=== PATIENT | male | born 1990 | race Caucasian/White ===

== ENCOUNTER → 2018-04-25 09:41 | Outpatient (CLI) | payer OTHER, SELFPAY ==
[2015-10-26 21:21] VITALS: BMI 32.3
[2018-04-25 12:12] LABS: Erythrocyte Sedimentation Rate 1 mm/hr (0-15)
[2018-04-25 12:16] LABS: Absolute Lymphocyte Count 2.18 X10^3/ul (0.83-4.51); Absolute Neutrophil Count 3.5 X10^3/uL (2.0-7.7); Basophil# 0.03 X10^3/uL; Basophil% 0.5 % (0-1); Eosinophils% 1.6 % (0-5); Hematocrit 43.4 % (40-54); Hemoglobin 14.5 g/dl (13.0-16.5); Lymphocyte # 2.18 X10^3/ul (4.0); Lymphocyte % 35.5 % (19-41); Mean Corp Hgb Conc 33.4 g/gl (32-36); Mean Corpuscular Hgb 28.2 pg (27.0-32.0); Mean Corpuscular Volume 84.3 fL (80-94); Mean Platelet Vol. 11.2 fl (6.2-12.0); Monocyte# 0.32 X10^3/uL; Monocyte% 5.2 % (0-10); Neutrophil # 3.47 X10^3/uL (2.7-7.7); Neutrophil % 56.5 % (47-70); POSITIVE COUNT NO; POSITIVE DIFFERENTIAL NO; POSITIVE MORPHOLOGY NO; Platelet Count 245 K/mm3 (150-450); RBC Distribution Width CV 12.9 % (11.6-14.6); RBC Distribution Width SD 39.6 fl (35.1-43.9); Red Blood Count 5.15 M/mm3 (4.6-6.2); White Blood Count 6.1 K/mm3 (4.4-11.0)
[2018-04-25 12:29] LABS: Vitamin D,25 Hydroxy 19.8 ng/mL (29.95-100.01)
[2018-04-25 12:46] LABS: ALB/GLOB Ratio 1.1 RATIO (0.9-2.4); AST(SGOT) 18 U/L (15-37); Alanine Aminotransfer ALT/SGPT 35 U/L (16-61); Albumin, Serum 3.9 g/dL (3.2-5.0); Alkaline Phosphatase 61 U/L (45-117); Anion Gap 10 (5-15); BUN 18 mg/dL (7-18); BUN/Creat Ratio 16.1 RATIO (10-20); Calcium,Total 8.8 mg/dL (8.5-10.1); Chloride 105 mmol/L (98-107); Cholesterol 230 mg/dL (200); Creatinine, Serum 1.12 mg/dL (0.70-1.30); EST Glomerular Filtration Rate 83 mL/min (>60); Est Glom Filt Rate - Afr Amer 101 mL/min (>60); Globulin 3.6 g/dL (2.2-4.2); Glucose 84 mg/dL (74-106); High Density Lipoprotein 33 mg/dL; Protein, Total 7.5 g/dL (6.4-8.2); Sodium Level 143 mmol/L (136-145); Thyroid Stim Hormone (TSH) 2.22 uIU/mL (0.358-3.74); Triglycerides 223 mg/dL; Very Low Density Lipoprotein 45 mg/dL (5-40)
--- OUTSIDE RECORDS SUMMARY | 2018-07-27 16:51 | XMS RPT_ITS ---
:1990 Author Organization [facility] Care Team Providers Name Role Phone Artemio Chavarria Attending Unavailable [facility] Unavailable PROBLEMS PROBLEMS DATE TYPE CONDITION / ATTENDING STATUS SOURCE CODE 04/25/2018 Unknown V77.91 - [place], Active [place] [facility] V77.91(ICD-9) 04/25/2018 Unknown Z13.220 - Deon Active [place] Encounter for [facility] screening for Hospital lipoid Repository disorders / Z13.220(ICD-10) 04/25/2018 Unknown 780.79 - Other [place], Active [place] malaise and [facility] fatigue / Hospital 780.79(ICD-9) Repository 04/25/2018 Unknown R53.83 - Other [place], Active [place] fatigue / [facility] R53.83(ICD-10) Hospital Repository PROCEDURES PROCEDURES No Procedure Records FoundRESULTS RESULTS ERYTHROCYTE SED RATE Collected: 04/25/2018 Status: F Source: [place] 9:46 AM [facility] REPOSITORY TYPE CODE TESTS RESULT OUT OF RANGE REFERENCE UNITS LAB L102.0000 0-15 mm/hr Normal SED RATE 1 Performed By: #### L101.9900, L100.0100, L506.1000, L500.4050, L500.4100, L501.9520 #### [facility] [address] [place], [address] CBC W/DIFF, AUTOMATED Collected: 04/25/2018 Status: F Source: [place] 9:46 AM [facility] REPOSITORY TYPE CODE TESTS RESULT OUT OF RANGE REFERENCE UNITS LAB L100.1000 4.4-11.0 K/mm3 Normal WBC 6.1 LAB L100.1200 4.6-6.2 M/mm3 Normal RBC 5.15 LAB L100.1300 13.0-16.5 g/dl Normal HGB 14.5 LAB L100.1400 40-54 % Normal HCT 43.4 LAB L100.1500 80-94 fL Normal MCV 84.3 LAB L100.1600 27.0-32.0 pg Normal MCH 28.2 LAB L100.1700 32-36 g/gl Normal MCHC 33.4 LAB L100.1810 11.6-14.6 % Normal RDW CV 12.9 LAB L100.1820 35.1-43.9 fl Normal RDW SD 39.6 LAB L100.1900 150-450 K/mm3 Normal PLT 245 LAB L100.2000 6.2-12.0 fl Normal MPV 11.2 LAB L100.2100 47-70 % Normal NEUT% 56.5 LAB L100.2200 19-41 % Normal LY% 35.5 LAB L100.2300 0-10 % Normal MONO% 5.2 LAB L100.2400 0-5 % Normal EO% 1.6 LAB L100.2500 0-1 % Normal BASO% 0.5 LAB L100.2550 0.0-0.9 % Normal IM GRAN % 0.700 Result Comment: IG% - Immature Granulocytes (promyelocytes, myelocytes and metamyelocytes) > 1% indicates that a LEFT SHIFT is Present. LAB L100.2620 2.0-7.7 X10 3/uL Normal Absolute Neut 3.5 LAB L100.2720 0.83-4.51 X10 3/ul Normal Absolute Lymph 2.18 Performed By: #### L101.9900, L100.0100, L506.1000, L500.4050, L500.4100, L501.9520 #### [facility] [address] [place], [address] VITAMIN D,25 HYDROXY Collected: 04/25/2018 Status: F Source: [place] 9:46 AM [facility] REPOSITORY TYPE CODE TESTS RESULT OUT OF REFERENCE UNITS RANGE LAB L506.1000 29.95-100.01 ng/mL Low Vitamin D 19.8 25-OH Result Comment: Vitamin D 25(OH) Status Range Deficiency <20 ng/mL (50nmol/L) Insuffciency 20 - 30 ng/mL (50 - 75 nmol/L) Sufficiency 30 - 100 ng/mL (75 - 250 nmol/L) Toxicity >100 ng/mL (>250 nmol/L) Performed By: #### L101.9900, L100.0100, L506.1000, L500.4050, L500.4100, L501.9520 #### [facility] [address] [place], [address] COMPREHENSIVE METABOLIC Collected: 04/25/2018 Status: F Source: [facility] 9:46 AM [facility] REPOSITORY TYPE CODE TESTS RESULT OUT OF RANGE REFERENCE UNITS LAB L501.0100 74-106 mg/dL Normal GLU 84 Result Comment: Please note revised GLUCOSE reference range effective 2017. LAB L501.1000 7-18 mg/dL Normal BUN 18 LAB L501.1100 0.70-1.30 mg/dL Normal CREAT,SERUM 1.12 Result Comment: The validity of the calculated GFR AND GFRAA in patients over 70 years has not been determined. Clinical correlation is essential. LAB L501.1110 >60 mL/min Normal EST GFR 83 Result Comment: Non- GFR Calc LAB L501.1115 >60 mL/min Normal EST GFR - AA 101 Result Comment: GFR Calc LAB L501.1300 10-20 RATIO Normal BUN/CRE 16.1 LAB L501.1500 6.4-8.2 g/dL T Normal PROT 7.5 LAB L501.1800 3.2-5.0 g/dL Normal ALB 3.9 LAB L501.1950 2.2-4.2 g/dL Normal GLOB 3.6 LAB L501.2000 0.9-2.4 RATIO Normal A/G 1.1 LAB L501.2200 8.5-10.1 mg/dL CA Normal 8.8 LAB L501.4100 15-37 U/L Normal AST 18 LAB L501.4305 45-117 U/L Normal ALK P 61 LAB L501.4405 16-61 U/L Normal ALT 35 LAB L501.4600 0.20-1.00 mg/dL T Normal BILI 0.50 LAB L501.5300 136-145 mmol/L NA Normal 143 LAB L501.5600 3.5-5.1 mmol/L K Normal 4.0 LAB L501.5900 98-107 mmol/L CL Normal 105 LAB L501.6100 21.0-32.0 mmol/L Normal CO2 28.0 LAB L501.6200 5-15 Normal GAP 10 Performed By: #### L101.9900, L100.0100, L506.1000, L500.4050, L500.4100, L501.9520 #### [facility] [address] [facility] [place], [place], [id number] LIPID PROFILE Collected: 04/25/2018 Status: F Source: [place] 9:46 AM [facility] REPOSITORY TYPE CODE TESTS RESULT OUT OF RANGE REFERENCE UNITS LAB L501.4900 200 mg/dL High CHOL 230 Result Comment: <200 mg/dL Desirable 200-240 mg/dL Borderline >240 mg/dL High Risk LAB L501.5000 mg/dL High TRIG 223 Result Comment: The drugs N-Acetylcysteine and Metamizole may falsely depress this assay. Serum Triglycerides Reference Interval Normal <150 mg/dL Borderline high 150 - 199 mg/dL High 200 - 499 mg/dL Very High > or = 500 mg/dL LAB L501.6400 mg/dL Low HDL 33 Result Comment: The drugs N-Acetylcysteine and Metamizole may falsely depress this assay. Reference Range HDL <40 mg/dL Low HDL Cholesterol HDL >or= 60 mg/dL High HDL Cholesterol LAB L501.6500 0-130 mg/dL High LDL 152 LAB L501.6600 5-40 mg/dL High VLDL 45 Performed By: #### L101.9900, L100.0100, L506.1000, L500.4050, L500.4100, L501.9520 #### [facility] [address] [facility] [place], [place], [id number] THYROID STIM HORMONE Collected: 04/25/2018 Status: F Source: [place] (TSH) 9:46 AM [facility] REPOSITORY TYPE CODE TESTS RESULT OUT OF RANGE REFERENCE UNITS LAB L501.9520 0.358-3.74 uIU/mL Normal TSH 2.22 Performed By: #### L101.9900, L100.0100, L506.1000, L500.4050, L500.4100, L501.9520 #### [facility] [address] [place], [address] ALLERGIES ALLERGIES DATE TYPE / CODE NAME / CODE REACTION SEVERITY SOURCE 10/26/2015 Drug codeine Hives Unknown [facility] Allergy/4160 phosphate/F000 Hospital 17140(SNOMED 010889(RXNORM) Repository CT) 10/26/2015 Drug acetaminophen/ Hives Unknown [facility] Allergy/4160 [id number](RXN Hospital 09440(SNOMED ORM) Repository CT) ENCOUNTERS ENCOUNTERS ADMIT/DISCHARGE ACCOUNT ADMITTING ENCOUNTER LOCATION SOURCE NUMBER CLASS 04/25/2018 [id number] Ambulatory [address] ing:MFPLAB Repository PAYERS PAYERS ENCOUNTER GUARANTOR PAYER SUBSCRIBER SOURCE 04/25/2018 Sathish Godfrey Primary [place] [address] TR Insurance:[address] [facility] [address]Tuf: ([phone]) [id number] Repository [phone] () Date:[id number] [address]LJ: 04/25/2018 Secondary [place]:SELF [facility]Y [facility] Number: Effective Repository Date:2018-04-25
== END ==
PROVIDERS: Family Provider Family Medicine; PCP Family Medicine; Visit Provider Family Medicine
DX: R53.83 Other fatigue (principal); Z13.220 Encounter for screening for lipoid disorders
CPT/HCPCS: 36415; 80053; 80061; 82306; 84443; 85025; 85652

== ENCOUNTER 2024-12-06 23:47 | Emergency (ER) | payer OTHER, SELFPAY ==
[2024-12-06 23:48] VITALS: BP 163/95; PULSE 83; RESP 20; TEMP 36.2; O2SAT 98; BMI 35.4
--- OUTSIDE RECORDS SUMMARY | 2024-12-07 00:17 | XMS RPT_ITS | CCD ---
Author Organization [facility] Care Team Providers Care Edi Architect Name Role Phone Artemio Chavarria Unavailable Unavailable Artemio Chavarria Unavailable Unavailable TOBY FIGUEROA Attending Unavailable CAROLEE RIVERA (SPECIAL EDUCATION PARA PROFESSIONAL) Referring Unavailable Allergies Allergy Classification Reported Allergen(s) Allergy Type Date of Onset Reaction(s) Facility (1 source) Acetaminophen Drug Allergy 10-26-2015 [facility] Repository (1 source) Codeine Drug Allergy 10-26-2015 [facility] Repository (1 source) Codeine; Translations: [CODEINE] Drug Allergy 08-16-2007 [facility] Repository Problems Problem Classification Problem Date Documented Da te Episodic/Chronic Malaise and fatigue (2 sources) Other malaise and fatigue; Translations: [Other fatigue] Onset: 04-25-2018 Episodic Other screening for suspected conditions (not mental disorders or infectious disease) (2 sources) Screening for lipoid disorders; Translations: [Encounter for screening for lipoid disorders] Onset: 04-25-2018 Episodic Results Test Name Value Interpretation Reference Range Facil ity CBC W/Diff, Automatedon 04-08 Absolute Neut 3.5 X10 3/uL Normal 2.0-7.7 [facility] Comment on above: Performed By: #### L 101.9900, L100.0100, L506.1000, L500.4050, L500.4100, L501.9520 ####[facility] [address] [place], [address] Basophils/100 WBC Auto (Bld) 0.5 % Normal 0-1 [facility] Comment on above: Performed By: #### L 101.9900, L100.0100, L506.1000, L500.4050, L500.4100, L501.9520 ####[facility] [address] [place], [address] Eosinophils/100 WBC Auto (Bld) 1.6 % Normal 0-5 [facility] Comment on above: Performed By: #### L 101.9900, L100.0100, L506.1000, L500.4050, L500.4100, L501.9520 ####[facility] [address] [place], [address] Erythrocyte distribution width Auto Ratio (RBC) 12.9 % Normal 11.6-14.6 [facility] Comment on above: Performed By: #### L 101.9900, L100.0100, L506.1000, L500.4050, L500.4100, L501.9520 ####[facility] [address] [place], [address] Hematocrit Auto Volume Fraction (Bld) 43.4 % Normal 40-54 [facility] Comment on above: Performed By: #### L 101.9900, L100.0100, L506.1000, L500.4050, L500.4100, L501.9520 ####[facility] [address] [place], [address] Hemoglobin mass conc (Bld) 14.5 g/dL Normal 13.0-16.5 [facility] Comment on above: Performed By: #### L 101.9900, L100.0100, L506.1000, L500.4050, L500.4100, L501.9520 ####[facility] [address] [place], [address] IM GRAN % 0.700 % Normal 0.0-0.9 [facility] Comment on above: Result Comment: IG% - Immature Granulocytes (promyelocytes, myelocytes andmetamyelocytes) > 1% indicates that a LEFT SHIFT is Present. Performed By: #### L 101.9900, L100.0100, L506.1000, L500.4050, L500.4100, L501.9520 ####[facility] [address] [place], [address] Lymphocytes Auto #/vol (Bld) 2.18 X10 3/ul Normal 0.83-4.51 [facility] Comment on above: Performed By: #### L 101.9900, L100.0100, L506.1000, L500.4050, L500.4100, L501.9520 ####[facility] [address] [place], [address] Lymphocytes/100 WBC Auto (Bld) 35.5 % Normal 19-41 [facility] Comment on above: Performed By: #### L 101.9900, L100.0100, L506.1000, L500.4050, L500.4100, L501.9520 ####[facility] [address] [place], [address] MCH Auto Entitic mass (RBC) 28.2 pg Normal 27.0-32.0 [facility] Comment on above: Performed By: #### L 101.9900, L100.0100, L506.1000, L500.4050, L500.4100, L501.9520 ####[facility] [address] [place], [address] MCHC Auto mass conc (RBC) 33.4 g/gl Normal 32-36 [facility] Comment on above: Performed By: #### L 101.9900, L100.0100, L506.1000, L500.4050, L500.4100, L501.9520 ####[facility] [address] [place], [address] MCV Auto Entitic volume (RBC) 84.3 fL Normal 80-94 [facility] Comment on above: Performed By: #### L 101.9900, L100.0100, L506.1000, L500.4050, L500.4100, L501.9520 ####[facility] [address] [place], [address] Monocytes/100 WBC Auto (Bld) 5.2 % Normal 0-10 [facility] Comment on above: Performed By: #### L 101.9900, L100.0100, L506.1000, L500.4050, L500.4100, L501.9520 ####[facility] [address] [place], [address] Neutrophils/100 WBC Auto (Bld) 56.5 % Normal 47-70 [facility] Comment on above: Performed By: #### L 101.9900, L100.0100, L506.1000, L500.4050, L500.4100, L501.9520 ####[facility] [address] [place], [address] Platelet mean volume Auto Entitic volume (Bld) 11.2 fL Normal 6.2-12.0 [facility] Comment on above: Performed By: #### L 101.9900, L100.0100, L506.1000, L500.4050, L500.4100, L501.9520 ####[facility] [address] [place], [address] Platelets Auto #/vol (Bld) 245 10*3/uL Normal 150-450 [facility] Comment on above: Performed By: #### L 101.9900, L100.0100, L506.1000, L500.4050, L500.4100, L501.9520 ####[facility] [address] [place], [address] RBC Auto #/vol (Bld) 5.15 M/mm3 Normal 4.6-6.2 [facility] Comment on above: Performed By: #### L 101.9900, L100.0100, L506.1000, L500.4050, L500.4100, L501.9520 ####[facility] [address] [place], [place], [id number] RDW SD 39.6 fl Normal 35.1-43.9 [facility] Comment on above: Performed By: #### L 101.9900, L100.0100, L506.1000, L500.4050, L500.4100, L501.9520 ####[facility] [address] [place], [address] WBC Auto #/vol (Bld) 6.1 10*3/uL Normal 4.4-11.0 [facility] Comment on above: Performed By: #### L 101.9900, L100.0100, L506.1000, L500.4050, L500.4100, L501.9520 ####[facility] [address] [place], [place], [id number] Comprehensive Metabolic Prof caon 04-25-2018 Albumin mass conc 3.9 g/dL Normal 3.2-5.0 [facility] Comment on above: Performed By: #### L 101.9900, L100.0100, L506.1000, L500.4050, L500.4100, L501.9520 ####[facility] [address] [place], [place], [address] Albumin/Globulin mass ratio 1.1 {ratio} Normal 0.9-2.4 [facility] Comment on above: Performed By: #### L 101.9900, L100.0100, L506.1000, L500.4050, L500.4100, L501.9520 ####[facility] [address] [place], [address] ALP enzyme act/vol 61 U/L Normal 45-117 [facility] Comment on above: Performed By: #### L 101.9900, L100.0100, L506.1000, L500.4050, L500.4100, L501.9520 ####[facility] [address] [place], [address] ALT enzyme act/vol 35 U/L Normal 16-61 [facility] Comment on above: Performed By: #### L 101.9900, L100.0100, L506.1000, L500.4050, L500.4100, L501.9520 ####[facility] [address] [place], [address] AST enzyme act/vol 18 U/L Normal 15-37 [facility] Comment on above: Performed By: #### L 101.9900, L100.0100, L506.1000, L500.4050, L500.4100, L501.9520 ####[facility] [address] [place], [address] Bilirubin mass conc 0.50 mg/dL Normal 0.20-1.00 [facility] Comment on above: Performed By: #### L 101.9900, L100.0100, L506.1000, L500.4050, L500.4100, L501.9520 ####[facility] [address] [place], [address] Calcium mass conc 8.8 mg/dL Normal 8.5-10.1 [facility] Comment on above: Performed By: #### L 101.9900, L100.0100, L506.1000, L500.4050, L500.4100, L501.9520 ####[facility] [address] [place], [address] Chloride molar conc 105 mmol/L Normal 98-107 [facility] Comment on above: Performed By: #### L 101.9900, L100.0100, L506.1000, L500.4050, L500.4100, L501.9520 ####[facility] [address] [place], [address] CO2 molar conc 28.0 mmol/L Normal 21.0-32.0 [facility] Comment on above: Performed By: #### L 101.9900, L100.0100, L506.1000, L500.4050, L500.4100, L501.9520 ####[facility] [address] [place], [address] Creatinine mass conc 1.12 mg/dL Normal 0.70-1.30 [facility] Comment on above: Result Comment: The validity of the calculated GFR AND GFRAA in patients over70 years has not been determined. Clinical correlation isessential. Performed By: #### L 101.9900, L100.0100, L506.1000, L500.4050, L500.4100, L501.9520 ####[facility] [address] [place], [address] EST GFR - AA 101 mL/min Normal >60 [facility] Comment on above: Result Comment: Afri can [place]egalese GFR Calc Performed By: #### L 101.9900, L100.0100, L506.1000, L500.4050, L500.4100, L501.9520 ####[facility] [address] [place], [address] GAP 10 Normal 5-15 [facility] Comment on above: Performed By: #### L 101.9900, L100.0100, L506.1000, L500.4050, L500.4100, L501.9520 ####[facility] [address] [place], [address] GFR/1.73 sq M predicted among non-blacks MDRD vol rate/area (S/P/Bld) 83 mL/min/{1.73_m2} Normal >60 [facility] Comment on above: Result Comment: Non- GFR Calc Performed By: #### L 101.9900, L100.0100, L506.1000, L500.4050, L500.4100, L501.9520 ####[facility] [address] [place], [address] Globulin Calculated mass conc (S) 3.6 g/dL Normal 2.2-4.2 [facility] Comment on above: Performed By: #### L 101.9900, L100.0100, L506.1000, L500.4050, L500.4100, L501.9520 ####[facility] [address] [place], [address] Glucose mass conc 84 mg/dL Normal 74-106 [facility] Comment on above: Result Comment: Elaine welsh note revised GLUCOSE reference range ajbgjxlpy22/02/2018. Performed By: #### L 101.9900, L100.0100, L506.1000, L500.4050, L500.4100, L501.9520 ####[facility] [address] [place], [address] Potassium molar conc 4.0 mmol/L Normal 3.5-5.1 [facility] Comment on above: Performed By: #### L 101.9900, L100.0100, L506.1000, L500.4050, L500.4100, L501.9520 ####[facility] [address] [place], [address] Protein mass conc 7.5 g/dL Normal 6.4-8.2 [facility] Comment on above: Performed By: #### L 101.9900, L100.0100, L506.1000, L500.4050, L500.4100, L501.9520 ####[facility] [address] [place], [address] Sodium molar conc 143 mmol/L Normal 136-145 [facility] Comment on above: Performed By: #### L 101.9900, L100.0100, L506.1000, L500.4050, L500.4100, L501.9520 ####[facility] [address] [place], [address] Urea nitrogen mass conc 18 mg/dL Normal 7-18 [facility] Comment on above: Performed By: #### L 101.9900, L100.0100, L506.1000, L500.4050, L500.4100, L501.9520 ####[facility] [address] [place], [address] Urea nitrogen mass conc (Bld) 16.1 RATIO Normal 10-20 [facility] Comment on above: Performed By: #### L 101.9900, L100.0100, L506.1000, L500.4050, L500.4100, L501.9520 ####[facility] [address] [place], [place], [id number](293) Erythrocyte Sed Rateon 04-25 SED RATE 1 mm/hr Normal 0-15 [facility] Comment on above: Performed By: #### L 101.9900, L100.0100, L506.1000, L500.4050, L500.4100, L501.9520 ####[facility] [address] [place], [address] Lipid Profileon 04-25-2018 Cholesterol in HDL mass conc 33 mg/dL Low [facility] Comment on above: Result Comment: The drugs N-Acetylcysteine and Metamizole may falselydepress this assay. Reference Range HDL <40 mg/dL Low HDL Cholesterol HDL >or= 60 mg/dL High HDL Cholesterol Performed By: #### L 101.9900, L100.0100, L506.1000, L500.4050, L500.4100, L501.9520 ####[facility] [address] [place], [address] Cholesterol in LDL mass conc 152 mg/dL High 0-130 [facility] Comment on above: Performed By: #### L 101.9900, L100.0100, L506.1000, L500.4050, L500.4100, L501.9520 ####[facility] [address] [place], [address] Cholesterol in VLDL mass conc 45 mg/dL High 5-40 [facility] Comment on above: Performed By: #### L 101.9900, L100.0100, L506.1000, L500.4050, L500.4100, L501.9520 ####[facility] [address] [place], [address] Cholesterol mass conc 230 mg/dL High 200 [facility] Comment on above: Result Comment: <200 mg/dL Desirable 200-240 mg/dL Borderline >240 mg/dL High Risk Performed By: #### L 101.9900, L100.0100, L506.1000, L500.4050, L500.4100, L501.9520 ####[facility] [address] [place], [address] Triglyceride mass conc 223 mg/dL High [facility] Comment on above: Result Comment: The drugs N-Acetylcysteine and Metamizole may falselydepress this assay.Serum Triglycerides Reference Interval Normal <150 mg/dL Borderline high 150 - 199 mg/dL High 200 - 499 mg/dL Very High > or = 500 mg/dL Performed By: #### L 101.9900, L100.0100, L506.1000, L500.4050, L500.4100, L501.9520 ####[facility] [address] [place], [address] Thyroid Stim Hormone (TSH)on 04-25-2018 Thyrotropin Qn 2.22 uIU/mL Normal 0.358-3.74 [facility] Comment on above: Performed By: #### L 101.9900, L100.0100, L506.1000, L500.4050, L500.4100, L501.9520 ####[facility] [address] [place], [address] Vitamin D,25 Hydroxyon 04-25 Vitamin D 25-OH 19.8 ng/mL Low 29.95-100.01 [facility] Comment on above: Result Comment: Inna min D 25(OH) Status Range Deficiency <20 ng/mL (50nmol/L) Insuffciency 20 - 30 ng/mL (50 - 75 nmol/L) Sufficiency 30 - 100 ng/mL (75 - 250 nmol/L) Toxicity >100 ng/mL (>250 nmol/L) Performed By: #### L 101.9900, L100.0100, L506.1000, L500.4050, L500.4100, L501.9520 ####[facility] [address] [place], [address] Encounters Encounter Date Encounter Type Care Provider Facility Start: 04-25-2018 Patient encounter procedure Artemio Chavarria Facility:[facility] Start: 10-08-2016 End: 10-08-2016 Patient encounter procedure TOBY FIGUEROA [facility] Payers Date Payer Category Payer Self-pay 2018 Unknown [id number] Unknown [id number] Summary Purpose Family History No Family History Records FoundNo Family History Records Found Advance Directives No Advanced Directives Records FoundNo Advanced Directives Records Found Additional Source Comments (unrecognized sect ion and content) No Status Records FoundNo Status Records Found INFORMATION SOURCE (unrecogn ized section and content) DATE CREATED AUTHOR 04/27/2018 [facility] DATE CREATED AUTHOR AUTHOR'S ORGANIZ ATADDIS 07/09/2018 [facility] FOR RECORDS PERTAINING TO PATIENTS WHO ARE OR HAVE BEEN ENROLLED IN A CHEMICAL DEPENDENCY/SUBSTANCEABUSE PROGRAM, SOME INFORMATION MAY BE OMITTED. This clinical summary was aggregated from multiple sources. Caution should be exercised in using it in the provision of clinical care. This summary normalizes information from multiple sources, and as a consequence, information in this document may materially change the coding, format and clinical context of patient data. In addition, data may be omitted in some cases. CLINICAL DECISIONS SHOULD BE BASED ON THE PRIMARY CLINICAL RECORDS. [facility]. provides no warranty or guarantee of the accuracy or completeness of information in this document.
--- NOTE | 2024-12-07 00:23 | CT_ITS ---
PROCEDURE: BRAIN/HEAD WITHOUT CONTRAST 12/07/2024 REASON FOR EXAM: HEAD INJURY TECHNIQUE: BRAIN/HEAD WITHOUT CONTRAST Coronal and Sagittal reconstruction series were provided. One or more dose reduction techniques were used (e.g., Automated exposure control, adjustment of the mA and/or kV according to patient size, use of iterative reconstruction technique. COMPARISON: No FINDINGS: No abnormal brain densities. No intracranial hemorrhage. No hydrocephalus or midline shift. No acute scalp or skull pathology. Left hemifacial injury. Unremarkable orbits. Clear sinuses. CT/Brain/Head without Contrast IMPRESSION: No acute intracranial findings Reading Location: [place] [address]
--- NOTE | 2024-12-07 00:23 | CT_ITS ---
PROCEDURE: SPINE CERVICAL WITHOUT CONTRAS 12/07/2024 REASON FOR EXAM: FALL TECHNIQUE: SPINE CERVICAL WITHOUT CONTRAS Coronal and Sagittal reconstruction series were provided. One or more dose reduction techniques were used (e.g., Automated exposure control, adjustment of the mA and/or kV according to patient size, use of iterative reconstruction technique. COMPARISON: No FINDINGS: Mild cervical spine degeneration. No acute fracture or dislocation. No soft tissue injury. CT/Spine Cervical without Contras IMPRESSION: No injury noted. Reading Location: [place] [address]
--- NOTE | 2024-12-07 00:23 | CT_ITS ---
PROCEDURE: SINUS/FACIAL BONE 12/07/2024 REASON FOR EXAM: INJURY TECHNIQUE: SINUS/FACIAL BONE Coronal and Sagittal reconstruction series were provided. One or more dose reduction techniques were used (e.g., Automated exposure control, adjustment of the mA and/or kV according to patient size, use of iterative reconstruction technique). RADIATION DOSE SUMMARY: CTDlvol: 100 mGy DLP: 2063 mGycm COMPARISON: No FINDINGS: No facial fracture or dislocation. Left hemifacial swelling/hemorrhage. Orbital soft tissues are unremarkable. CT/Sinus/Facial Bone IMPRESSION: Left hemifacial soft tissue injury. Reading Location: [place] [address]
--- NOTE | 2024-12-07 00:40 | RAD_ITS ---
PROCEDURE: RIBS UNI MIN 3V W/PA CHEST 12/07/2024 REASON FOR EXAM: PAIN TECHNIQUE: RIBS UNI MIN 3V W/PA CHEST COMPARISON: No FINDINGS: Normal heart size. Well inflated lungs. No contusion, pneumothorax, or pleural effusion. No acute rib fracture. RAD/Ribs Uni Min 3V w/PA Chest IMPRESSION: No acute injury noted. [facility]
[2024-12-07 00:47] VITALS: BP 151/99; PULSE 77; O2SAT 96
[2024-12-07 01:00] VITALS: BP 151/99; PULSE 77; O2SAT 96
--- NOTE | 2024-12-07 01:29 | EDS_ITS ---
HPI History of Present Illness Chief Complaint: Fall Informant: patient and spouse/S.O. Narrative Narrative: Patient is a 34-year-old male who reports no past medical history. He states roughly an hour ago he was working outside in his barn. He he states one of the support beams he was walking [employer] and he fell approximately 10 feet landing on his left side striking his head/face. He denies any loss of consciousness from the fall. He denies any history of bleeding disorder or blood thinner use. He states he was able to get back up and walk to the house following the fall. Since that time he denies any change in vision or headache or nausea or vomiting. However secondary to the nature of the fall and concern for underlying trauma he was brought in for evaluation. PFSH PFS Medical History no medical history no medical history Home Medications ?Medication ?Instructions ?Recorded ?Last Taken ?Type amoxicillin 875 mg-potassium 1 tab PO BID 7 days #14 t abs 12/07/24 Unknown Rx clavulanate 125 mg tablet Allergy/AdvReac Type Severity Reaction Status Date / Time acetaminophen (From Allergy Hives Verified 12/06/24 23:47 Tylenol-Codeine) codeine phosphate (From Allergy Hives Verified 12/06/24 23:47 Tylenol-Codeine) Surgical History (Updated 12/06/24 @ 23:50 by Libertad Ro) History of appendectomy Social History Smoking Status: Never smoker ROS ROS ED Constitutional Constitutional ED: Denies chills or fever(s) Eyes Eyes: Denies blurry vision, change in vision or diplopia ENT ENT ED: Denies sore throat Cardiovascular Cardiovascular: Denies chest pain Respiratory/Chest Respiratory/Chest: Denies cough or dyspnea Gastrointestinal Gastrointestinal: Denies abdominal pain, nausea or vomiting Musculoskeletal Musculoskeletal: Reports other Details: Positive left chest wall pain ; Denies back pain or neck pain Integumentary Reports Abrasions and other Details: Positive left cheek abrasion and facial swelling with lower lip laceration Neurologic Neurologic: Denies headache(s), paresthesias or weakness Hematologic/Lymphatic Hematologic/Lymphatic: Denies easy bleeding or easy bruising Allergic/Immunologic Allergic/Immunologic ED: Reports mouth swelling EXAM Physical Exam Const Vital Signs: 12/06/24 23:48 12/06/24 23:50 12/07/24 00:47 Temperature 97.2 F L Temperature Source Temporal Pulse Rate 83 77 Respiratory Rate 20 H Respiratory Effort Normal Respiratory Depth Normal Respiratory Pattern Normal Blood Pressure 163/95 H 151/99 H Blood Pressure Mean 117 116 Pulse Ox 98 96 Oxygen Delivery Method Room Air Room Air Room Air 12/07/24 01:00 12/07/24 01:38 Temperature 98.8 F Temperature Source Pulse Rate 77 85 Respiratory Rate 17 Respiratory Effort Respiratory Depth Respiratory Pattern Blood Pressure 151/99 H 159/99 H Blood Pressure Mean 116 119 Pulse Ox 96 99 Oxygen Delivery Method Room Air Positive well nourished and well developed General Appearance ED: well developed; Negative for pallor HEENT HEENT Narrative: Patient has a superficial abrasion across the anterior cheek on the left by the zygomatic arch. He has diffuse left-sided facial swelling There is a subcutaneous layer deep 1.5 cm jagged laceration to the internal aspect of the left sided portion of the lower lip without active bleeding or retained foreign body No septal hematoma noted No signs of depressed or basilar skull fracture Eyes PERRL and EOMs intact bilaterally Eyes Narrative: No hyphema Neck supple Neck Narrative: No bony deformity or step-off of the cervical spine no midline tenderness to palpation Patient can move his neck in all directions without pain Chest Wall Chest Narrative: There is mild soft tissue swelling and pain with palpation of the anterior lateral chest wall rib regions 4-6 without bony deformity or crepitance noted Resp normal respiratory effort and clear to auscultation bilaterally Cardio regular rate and regular rhythm GI normal to inspection, nondistended, normoactive bowel sounds, non-tender, non- distended and no masses GI Narrative: No voluntary guarding or rigidity or pulsatile mass No overlying ecchymosis present Auscultation: normoactive bowel sounds Palpation: soft Back/Spine Back/Spine Narrative: No bony deformity or step-off of the thoracic or lumbar spine No midline pain with palpation Extremity normal to inspection Extremity Narrative: Pelvis is stable there is no shortening or external rotation of either lower extremity Patient can move all extremities without difficulty or pain No sign of long bone injury such as bony deformity or joint effusion Neuro oriented x3, CN's II-XII intact bilaterally and no sensory deficits noted Sensorium / Orientation: alert Motor Exam: strength 5/5 throughout Psych mental status grossly normal Skin no rashes or lesions noted Skin Narrative: Patient has soft tissue swelling ecchymosis to the left side of the face with hematoma formation as documented above as well as the left lower lip laceration also documented above General Skin Exam: Negative for jaundice or pallor MDM MDM MDM Narrative Medical decision making narrative: Patient arrived to ER hypertensive but otherwise with stable vitals. He had a high mechanism of injury mechanical fall and therefore there is concern for skull fracture versus traumatic subarachnoid or subdural hemorrhage versus potential facial fracture or cervical spine injury such as compression fracture or burst fracture. With pain to the left chest wall he also has concern for rib fracture or pneumothorax. Secondary to this CT scans and an x-ray were obtain ed. Imaging studies revealed no signs of acute trauma. He did not have bruising or pain across his abdomen so I felt no need for a CT scan of this. I did place the ultrasound over his abdomen and there is no sign of free fluid or splenic injury. Upon reevaluation he remains awake alert and oriented. Therefore his workup shows no sign of internal trauma there is no need for further intervention. The patient's lip laceration is internal and will heal spontaneously and without significant gapping or active bleeding there is no need for sutures. History & Record Review Discussion w/independent historian: Patient and Significant other Radiography Diagnostic Testing: Clinical Impression(s) from Imaging Studies Brain CT 12/07/24 00:23 IMPRESSION: No acute intracranial findings Reading Location: [facility] 12/07/24 00:23 IMPRESSION: No injury noted. Reading Location: [facility] Facial/Sinus 12/07/24 00:23 IMPRESSION: Left hemifacial soft tissue injury. Reading Location: [facility] Ribs w/Chest X-Ray 12/07/24 00:40 IMPRESSION: No acute injury noted. Reading Location: [facility] Left rib series with 1 view chest as interpreted by the emergency medicine physician reveals no acute rib fracture pneumothorax or infiltrate Discharge Plan Triage Chief Complaint: Fall ED Provider: Freddy Coburn Dx/Rx/DC Orders Clinical Impression: Facial contusion, Traumatic hematoma of face, Laceration of lower lip, Accidental fall, Hypertension Instructions: ED Facial Contusion, ED Hematoma, ED Laceration, Lip or Mouth Prescriptions: New amoxicillin-pot clavulanate 875-125 mg tablet 1 tab PO BID 7 Days Qty: 14 0RF Primary Care Provider: Artemio Chavarria Referrals: Artemio Chavarria MD [Primary Care Provider] - Activity Restrictions/Additional Instructions: Your images did not show any signs of acute trauma such as facial fracture brain bleed or neck fracture or broken ribs. Continue with Tylenol and or Motrin for pain control and use the antibiotic if you develop changes of infection secondary to your facial abrasion and lip laceration. If there is any further concerns or worsening of symptoms please return to the ER for repeat evaluation Print Language: Slovenian Disposition Disposition: Home, Self Care Discharge Date/Time: 12/07/24 01:38
[2024-12-07 01:38] VITALS: BP 159/99; PULSE 85; RESP 17; TEMP 37.1; O2SAT 99
== END 2024-12-07 01:38 | disposition home or self-care (01) ==
PROVIDERS: Emergency Provider Emergency Medicine; PCP Family Medicine; Visit Provider Emergency Medicine
DX: S01.511A Laceration without foreign body of lip, initial encounter (principal); I10 Essential (primary) hypertension; Y93.89 Activity, other specified; Y92.71 Barn as the place of occurrence of the external cause; Z90.49 Acquired absence of other specified parts of digestive tract; W17.89XA Other fall from one level to another, initial encounter
CPT/HCPCS: 70450; 70486; 71101; 72125; 99282